=== PATIENT | male | born 1975 | race African-American/Black ===

== ENCOUNTER 2019-09-16 15:26 | Emergency (ER) | payer SELFPAY ==
[~2019-09-16] VITALS: Ht 187 cm; Wt 94.3 kg
[~2019-09-16 15:26] MED LIST: AMOX500C2 PO; NAPR-243 PO; PENI500T PO; TRAM50TA2 PO; TRM50T PO
[2019-09-16] MEDS ORDERED: cloNIDine 0.1 MG (CATAPRES) TAB PO ONE (15:45)
[2019-09-16 15:57] LABS: BASOPHILS % (AUTO) 0 % (0-10); EOSINOPHILS # (AUTO) 0.1 10^3/uL (0.0-0.3); EOSINOPHILS % (AUTO) 2 % (0-10); HEMATOCRIT 43 % (40-54); HEMOGLOBIN 13.9 G/DL (13.3-17.7); LYMPHOCYTES # (AUTO) 2.3 X 10^3 (1.0-4.0); LYMPHOCYTES % (AUTO) 28 % (12-44); MEAN CORPUSCULAR HEMOGLOBIN 31 PG (25-34); MEAN CORPUSCULAR HGB CONC 33 G/DL (32-36); MEAN CORPUSCULAR VOLUME 95 FL (80-99); MEAN PLATELET VOLUME 8.7 FL (7.4-10.4); MONOCYTES # (AUTO) 0.7 X 10^3 (0.0-1.0); MONOCYTES % (AUTO) 9 % (0-12); NEUTROPHILS # (AUTO) 4.9 X 10^3 (1.8-7.8); NEUTROPHILS % (AUTO) 61 % (42-75); PLATELET COUNT 413 10^3/uL (130-400); RED CELL DISTRIBUTION WIDTH 13.5 % (10.0-14.5)
--- NOTE | 2019-09-16 16:06 | ED GI ---
General Chief Complaint: Rect Problems Stated Complaint: BLOOD IN STOOL Source of Information: Patient Exam Limitations: No Limitations History of Present Illness Date Seen by Provider: Sep 16, 2019 Time Seen by Provider: 16:04 Initial Comments To ER with reports of one episode of blood in his stool yesterday after a bowel movement. This was a nonpainful bowel movement, no history of this. He has been having some periumbilical abdominal pain since yesterday as well. He denies fever but does report general malaise and body aches as well as a headache, he attributed this to his high blood pressure. He takes medication for that. On arrival to ER his blood pressure is 173/130. States he's been out of his blood pressure medication for about 48 hours, he does not know the name or dosage of it. He feels this at [facility]. Timing/Duration: 1-2 Days Severity/Quality: Moderate Location: Periumbilical Radiation: No Radiation Activities at Onset: None Allergies and Home Medications Allergies Coded Allergies: No Known Drug Allergies (Unverified , 08/09/12) Patient Home Medication List Home Medication List Reviewed: Yes Review of Systems Review of Systems Constitutional: see HPI EENTM: No Symptoms Reported Respiratory: No Symptoms Reported Cardiovascular: No Symptoms Reported Gastrointestinal: See HPI, Abdominal Pain, Rectal Bleeding Genitourinary: No Symptoms Reported Musculoskeletal: no symptoms reported Skin: no symptoms reported Psychiatric/Neurological: No Symptoms Reported Endocrine: No Symptoms Reported Hematologic/Lymphatic: No Symptoms Reported Past Cbmtxyv-Udcebt-Ijltfv Hx Patient Social History Recent Foreign Travel: No Contact w/Someone Who Travel: No Past Medical History Orthopedic Hypertension Physical Exam Vital Signs Vital Signs - First Documented 09/16/19 16:02 Temp 36.9 Pulse 82 Resp 20 B/P (MAP) 165/113 (130) Pulse Ox 99 Capillary Refill : Height/Weight/BMI Height: 6'2" Weight: 225lbs. oz. 102.559927rv; 28.88 BMI Method:Stated General Appearance: WD/WN, no apparent distress HEENT: PERRL/EOMI, normal ENT inspection Respiratory: no respiratory distress, no accessory muscle use Cardiovascular: regular rate, rhythm, no murmur Gastrointestinal: normal bowel sounds, non tender, soft Genital/Rectal: other (no external hemorrhoid or fissure visualized) Extremities: normal range of motion, non-tender Neurologic/Psychiatric: alert, normal mood/affect, oriented x 3 Skin: normal color, warm/dry Progress/Results/Core Measures Results/Orders Lab Results Laboratory Tests Test 09/16/19 15:47 Range/Units White Blood Count 8.0 4.3-11.0 10^3/uL Red Blood Count 4.47 4.35-5.85 10^6/uL Hemoglobin 13.9 13.3-17.7 G/DL Hematocrit 43 40-54 % Mean Corpuscular Volume 95 80-99 FL Mean Corpuscular Hemoglobin 31 25-34 PG Mean Corpuscular Hemoglobin Concent 33 32-36 G/DL Red Cell Distribution Width 13.5 10.0-14.5 % Platelet Count 413 H 130-400 10^3/uL Mean Platelet Volume 8.7 7.4-10.4 FL Neutrophils (%) (Auto) 61 42-75 % Lymphocytes (%) (Auto) 28 12-44 % Monocytes (%) (Auto) 9 0-12 % Eosinophils (%) (Auto) 2 0-10 % Basophils (%) (Auto) 0 0-10 % Neutrophils # (Auto) 4.9 1.8-7.8 X 10^3 Lymphocytes # (Auto) 2.3 1.0-4.0 X 10^3 Monocytes # (Auto) 0.7 0.0-1.0 X 10^3 Eosinophils # (Auto) 0.1 0.0-0.3 10^3/uL Basophils # (Auto) 0.0 0.0-0.1 10^3/uL Prothrombin Time 12.6 12.2-14.7 SEC INR Comment 0.9 0.8-1.4 Sodium Level 141 135-145 MMOL/L Potassium Level 4.1 3.6-5.0 MMOL/L Chloride Level 106 98-107 MMOL/L Carbon Dioxide Level 24 21-32 MMOL/L Anion Gap 11 5-14 MMOL/L Blood Urea Nitrogen 11 7-18 MG/DL Creatinine 1.22 0.60-1.30 MG/DL Estimat Glomerular Filtration Rate > 60 BUN/Creatinine Ratio 9 Glucose Level 86 70-105 MG/DL Calcium Level 8.8 8.5-10.1 MG/DL Corrected Calcium 8.7 8.5-10.1 MG/DL Total Bilirubin 0.4 0.1-1.0 MG/DL Aspartate Amino Transf (AST/SGOT) 24 5-34 U/L Alanine Aminotransferase (ALT/SGPT) 20 0-55 U/L Alkaline Phosphatase 91 40-136 U/L Total Protein 7.6 6.4-8.2 GM/DL Albumin 4.1 3.2-4.5 GM/DL My Orders Orders - AKOSUA MONTES GAS ANALYST Cbc With Automated Diff (09/16/19 15:39) Comprehensive Metabolic Panel (09/16/19 15:39) Protime With Inr (09/16/19 15:39) Ed Iv/Invasive Line Start (09/16/19 15:39) Clonidine Tablet (Catapres Tablet) (09/16/19 15:45) Ct Abdomen/Pelvis W (09/16/19 16:19) Iohexol Injection (Omnipaque 350 Mg/Ml 1 (09/16/19 16:30) Received Contrast (Hold Metformin- Contr (09/16/19 16:30) Ns (Ivpb) (Sodium Chloride 0.9% Ivpb Bag (09/16/19 16:30) Lisinopril Tablet (Zestril Tablet) (09/16/19 17:30) Medications Given in ED Current Medications Medications Dose Ordered Sig/Nicolette Route Start Time Stop Time Status Last Admin Dose Admin Clonidine HCl 0.1 mg ONCE ONCE PO 09/16/19 15:45 09/16/19 15:46 DC 09/16/19 15:59 0.1 MG Iohexol 100 ml ONCE ONCE IV 09/16/19 16:30 09/16/19 16:31 DC 09/16/19 16:45 100 ML Lisinopril 20 mg ONCE ONCE PO 09/16/19 17:30 09/16/19 17:31 DC 09/16/19 17:39 20 MG Sodium Chloride 100 ml ONCE ONCE IV 09/16/19 16:30 09/16/19 16:31 DC 09/16/19 16:45 80 ML Vital Signs/I&O 09/16/19 09/16/19 16:02 17:40 Temp 36.9 36.9 Pulse 82 86 Resp 20 20 B/P (MAP) 165/113 (130) 162/93 (130) Pulse Ox 99 99 Departure Impression Primary Impression: Rectal bleeding Additional Impression: Hypertension Disposition: 01 HOME, SELF-CARE Condition: Stable Departure-Patient Inst. Decision time for Depature: 17:24 Referrals: [facility] (PCP/Family) Primary Care Physician MARAL NIEVES BRETT D DO KIDO, TAKAAKI MD Patient Instructions: Hemorrhoids (DC) Add. Discharge Instructions: I suspect that your symptoms are due to an internal hemorrhoid, however this does warrant follow-up with one of the surgeons to discuss colonoscopy. Call tomorrow to make an appointment to be seen within the next few weeks. All discharge instructions reviewed with patient and/or family. Voiced understanding. AKOSUA MONTES GAS ANALYST Sep 16, 2019 16:06 POS
[2019-09-16 16:08] LABS: INR 0.9 (0.8-1.4); PROTHROMBIN TIME PATIENT 12.6 SEC (12.2-14.7)
[2019-09-16] MEDS ORDERED: bp med (16:16)
[2019-09-16 16:18] LABS: ALANINE AMINOTRANSFERASE 20 U/L (0-55); ALBUMIN 4.1 GM/DL (3.2-4.5); ALKALINE PHOSPHATASE 91 U/L (40-136); BILIRUBIN,TOTAL 0.4 MG/DL (0.1-1.0); BUN/CREATININE RATIO 9; CALCIUM 8.8 MG/DL (8.5-10.1); CARBON DIOXIDE 24 MMOL/L (21-32); CHLORIDE 106 MMOL/L (98-107); CREATININE SERUM 1.22 MG/DL (0.60-1.30); GFR ESTIMATED > 60; GLUCOSE 86 MG/DL (70-105); POTASSIUM 4.1 MMOL/L (3.6-5.0); SODIUM 141 MMOL/L (135-145); TOTAL PROTEIN 7.6 GM/DL (6.4-8.2)
[2019-09-16] MEDS ORDERED: NS 100 ML (IVPB) BAG IV ONE (16:30)
[2019-09-16] MEDS ORDERED: IOHEXOL 350 MG/ML 100 ML (OMNIPAQUE 350) VIAL IV ONE (16:30)
[2019-09-16] MEDS ORDERED: HOLD METFORMIN - RECEIVED CONTRAST 20 ML VIAL IV SCH (16:30)
--- NOTE | 2019-09-16 17:13 | Diagnostic Imaging Report ---
PROCEDURE: CT abdomen and pelvis with contrast. TECHNIQUE: Multiple contiguous axial images were obtained through the abdomen and pelvis after administration of intravenous contrast. Auto Exposure Controls were utilized during the CT exam to meet ALARA standards for radiation dose reduction. INDICATION: Abdominal pain and bloody stools. FINDINGS: Heart size is normal. The lung bases are clear. The liver is normal in size without focal lesions. Gallbladder is contracted. Spleen is normal. The pancreas and adrenal glands are unremarkable. Kidneys are normal in appearance apart from a cyst in the left kidney. The aorta is nonaneurysmal. Bowel gas pattern is nonspecific. There is no free air. There is no ascites. There are no focal inflammatory changes. There is bilateral spondylolysis at L5 without spondylolisthesis. IMPRESSION: 1. No acute abnormality in the abdomen or pelvis. 2. Bilateral spondylolysis at L5 without spondylolisthesis. Dictated by: Dictated on workstation # [id number]
[2019-09-16] MEDS ORDERED: lisINopril 20 MG (PRINIVIL) TABLET PO ONE (17:30)
[2019-09-16 17:40] VITALS: BP 162/93
== END 2019-09-16 17:40 | disposition home or self-care (01) ==
LOC: EDUNIT# 15:26 → ER 15:27
DX: K62.5 Hemorrhage of anus and rectum (principal); I10 Essential (primary) hypertension; Z82.49 Family history of ischemic heart disease and other diseases of the circulatory system
CPT/HCPCS: 36415; 74177; 80053; 85025; 85610

== ENCOUNTER 2020-11-28 03:01 | Emergency (ER) | payer SELFPAY ==
[~2020-11-28] VITALS: Ht 188 cm; Wt 95.3 kg
[~2020-11-28 03:01] MED LIST changes: +bp med
[2020-11-28 03:07] VITALS: BP 177/103
--- NOTE | 2020-11-28 03:32 | ED Upper Extremity ---
General Chief Complaint: Upper Extremity Stated Complaint: LEFT HAND PAIN/INJURY Nursing Triage Note: left wrist pain/swelling after accidentally hitting hand on dresser. 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 PCP: CHERYL Allergies and Home Medications Allergies Coded Allergies: No Known Drug Allergies (Unverified , 08/09/12) Home Medications Meloxicam 15 Mg Tablet, 15 MG PO DAILY Prescribed by: GEORGE HERNANDEZ on 11/28/20356 Tramadol HCl 50 Mg Tablet, 50 MG PO Q4H Prescribed by: GEORGE HERNANDEZ on 11/28/20356 Patient Home Medication List Home Medication List Reviewed: Yes Review of Systems Constitutional: no symptoms reported Musculoskeletal: see HPI Skin: no symptoms reported Psychiatric/Neurological: No Symptoms Reported Past Dxzuljj-Mvteic-Bzkmjh Hx Past Med/Social Hx: Reviewed and Corrections made Patient Social History Alcohol Use: Denies Use Drug of Choice: THC Smoking Status: Current Everyday Smoker Type Used: Cigarettes 2nd Hand Smoke Exposure: Yes Recent Infectious Disease Expo: No Recent Hopitalizations: No Immunizations Up To Date Tetanus Booster (TDap): Unknown Seasonal Allergies Seasonal Allergies: No Past Medical History Surgeries: Yes (LEFT ANKLE FX/ORIF 1997 WITH HARDWARE REMOVAL) Orthopedic Respiratory: Yes Tuberculosis Cardiac: Yes Hypertension Neurological: No Genitourinary: No Gastrointestinal: No Musculoskeletal: Yes (LEFT ANKLE FX/ORIF WITH HARDWARE REMOVAL 1997) Fractures Endocrine: No HEENT: No Cancer: No Psychosocial: No Integumentary: No Blood Disorders: No Physical Exam Vital Signs Vital Signs - First Documented 11/28/20 03:07 Temp 37.2 Pulse 71 Resp 18 B/P (MAP) 177/103 (127) Pulse Ox 98 O2 Delivery Room Air Capillary Refill : Less Than 3 Seconds Height, Weight, BMI Height: 6'2" Weight: 225lbs. oz. 102.760394dt; 26.00 BMI Method:Stated General Appearance: WD/WN, no apparent distress Shoulder: normal inspection Elbow/Forearm: normal inspection Wrist: Yes bone tenderness (DORSAL ASPECT OF LEFT WRIST), Yes limited ROM, Yes pain, Yes soft tissue tenderness, Yes swelling Hand: Left (DORSAL ASPECT OF LEFT WRIST), bone tenderness (NO SNUFF BOX TENDERNESS), limited ROM, swelling Neurologic/Tendon: normal sensation, normal motor functions, normal tendon functions Neurologic/Psychiatric: personal injury specialist II-XII nml as tested, no motor/sensory deficits, alert, normal mood/affect, oriented x 3 Skin: normal color (PT IS BLACK), warm/dry Procedures/Interventions Splinting and Joint Reduction : Splints: [place] Wrist Progress/Results/Core Measures Results/Orders My Orders Orders - GEORGE HERNANDEZ DO Wrist, Left, 3 Views Or More (11/28/20 03:18) Wrist-[place] (11/28/20 03:52) Rx-Tramadol Hcl (Rx-Ultram) (11/28/20 03:52) Vital Signs/I&O 11/28/20 03:07 Temp 37.2 Pulse 71 Resp 18 B/P (MAP) 177/103 (127) Pulse Ox 98 O2 Delivery Room Air Blood Pressure Mean: 127 Diagnostic Imaging Comments XRAYS LEFT WRIST--NO ACUTE PROCESS, PENDING RADIOLOGIST REVIEW Reviewed: Reviewed by Me Departure Impression Primary Impression: LEFT WRIST SPRAIN/CONTUSION Disposition: 01 HOME, SELF-CARE Condition: Stable Departure-Patient Inst. Referrals: [facility] (PCP/Family) Primary Care Physician ARIEL HERNANDEZ MD Patient Instructions: Common Wrist Injuries (DC), SPLINT CARE Add. Discharge Instructions: WEAR SPLINT AT ALL TIMES ICE TO AREA AT 20 MINUTE INTERVALS ELEVATE HAND MUCH POSSIBLE FOLLOW UP WITH DR. HERNANDEZ IN 1 WEEK IF NO BETTER All discharge instructions reviewed with patient and/or family. Voiced understanding. Scripts Tramadol HCl (Ultram) 50 Mg Tablet 50 MG PO Q4H for Pain, #20 TAB Prov: GEORGE HERNANDEZ DO 11/28/20 Meloxicam (Mobic) 15 Mg Tablet 15 MG PO DAILY, #10 TAB Prov: GEORGE HERNANDEZ DO 11/28/20 Work/School Note: Work Release Form Date Seen in the Emergency Department: Nov 28, 2020 Return to Work: Nov 29, 2020 Other Restrictions Listed Below: LIMITED USE OF LEFT HAND FOR 1 WEEK GEORGE HERNANDEZ DO Nov 28, 2020 03:32
[2020-11-28] MEDS ORDERED: RX-TRAMADOL 50 MG (ULTRAM) TAB PPK#4 PO STA (03:52)
[2020-11-28] MEDS ORDERED: TRAM-42 PO (03:57)
[2020-11-28] MEDS ORDERED: MELO15TA14 PO (03:57)
--- NOTE | 2020-11-28 07:49 | Diagnostic Imaging Report ---
INDICATION: Wrist injury COMPARISON: None available. TECHNIQUE: 3 radiographs left wrist dated 11/28/2020. FINDINGS: No acute fracture or dislocation. No destructive osseous process. Carpal alignment is well-maintained. No suspicious radiopaque foreign body. Minimal soft tissue swelling involving the dorsum of the hand overlying the carpus. IMPRESSION: No acute osseous abnormality with mild soft tissue swelling. Dictated by: Dictated on workstation # [id number]
== END 2020-11-28 04:03 | disposition home or self-care (01) ==
LOC: EDUNIT# 03:01 → ER 03:04
DX: S63.502A Unspecified sprain of left wrist, initial encounter (principal); F17.210 Nicotine dependence, cigarettes, uncomplicated; W23.1XXA Caught, crushed, jammed, or pinched between stationary objects, initial encounter
CPT/HCPCS: 73110